=== PATIENT | female | born 1960 | race Caucasian/White ===

== ENCOUNTER 2020-10-31 21:28 | Observation (INO) | payer OTHER ==
[~2020-10-31] VITALS: Ht 152.4 cm; Wt 106.6 kg
[2020-10-31 21:26] VITALS: BP 121/65
[~2020-10-31 21:28] MED LIST: CONTRAST GIVEN. MC PRN
[2020-10-31] MEDS ORDERED: CYCL10TA2 PO (22:26)
[2020-10-31] MEDS ORDERED: VALS1TAB14 PO (22:32)
[2020-10-31] MEDS ORDERED: ARIP10TA9 PO (22:32)
[2020-10-31] MEDS ORDERED: OXYC1TAB20 PO (22:32)
[2020-10-31] MEDS ORDERED: LINA1TAB5 PO (22:32)
[2020-10-31] MEDS ORDERED: INSU3INS2 SQ (22:32)
[2020-10-31] MEDS ORDERED: ALPR0.5T6 PO (22:32)
[2020-10-31] MEDS ORDERED: VENL150C PO (22:32)
[2020-10-31] MEDS ORDERED: GLIM4TAB8 PO (22:32)
[2020-10-31 23:00] VITALS: BP 120/70
[2020-10-31] MEDS ORDERED: oxyCODONE/APAP 10/325 1 TAB TABLET PO PRN (23:15)
[2020-11-01 02:58] VITALS: BP 125/70
[2020-11-01] MEDS: GLIMEPIRIDE 2 MG TABLET. PO SCH ×2 (06:15→08:26)
--- NOTE | 2020-11-01 06:38 | NUR ---
Patient arrived to unit at approx 2130 accompanied by [facility]. Patient reports not pain at this time and is resting comfortably on RA. home meds restarted per Dr. Du. Patient ambulated from gurney to bed with minimal assistance, states that she gets dizzy with ambulation. 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 bed in low locked position, call light in reach, reminded patient to call for assistance before ambulating. Will continue to monitor.
[2020-11-01 07:00] VITALS: BP 116/70
[2020-11-01 08:06] LABS: BASO # 0.1 x10^3/uL (0.0-0.2); BASO % 1 % (0-3); EOS # 0.2 x10^3/uL (0.0-0.7); EOS % 2 % (0-3); HEMATOCRIT 35.4 % (36.0-47.0); LYMPH % 33 % (24-48); MEAN CORPUSCULAR HEMOGLOBIN 28 pg (25-35); MEAN CORPUSCULAR HGB CONC 34 g/dL (31-37); MEAN CORPUSCULAR VOLUME 82 fL (79-100); MONO # 0.5 x10^3/uL (0.0-1.1); MONO % 5 % (0-9); NEUT # 5.2 x10^3/uL (1.8-7.7); NEUT % 59 % (31-73); PLATELET COUNT 316 x10^3/uL (140-400); RED BLOOD COUNT 4.33 x10^6/uL (3.50-5.40); RED CELL DISTRIBUTION WIDTH 15.2 % (11.5-14.5); WHITE BLOOD COUNT 8.9 x10^3/uL (4.0-11.0)
[2020-11-01 08:19] LABS: ALBUMIN 3.3 g/dL (3.4-5.0); ALBUMIN/GLOBULIN RATIO 1.1 (1.0-1.7); CREATININE 0.9 mg/dL (0.6-1.0); GFR 64.1; POTASSIUM 4.2 mmol/L (3.5-5.1); TOTAL BILIRUBIN 0.2 mg/dL (0.2-1.0); TOTAL PROTEIN 6.4 g/dL (6.4-8.2)
[2020-11-01] MEDS: ALPRAZolam 0.5 MG TABLET PO SCH (08:25)
[2020-11-01] MEDS: hydroCHLOROthiazide 25 MG TABLET PO SCH (08:25)
[2020-11-01] MEDS: CYCLOBENZAPRINE 10 MG TABLET. PO SCH (08:25)
[2020-11-01] MEDS: VENLAFAXINE 50 MG TABLET. PO SCH ×3 (08:25→21:13)
[2020-11-01] MEDS: NICOTINE 21MG PATCH. TD PRN (08:25)
[2020-11-01] MEDS: LINAGLIPTIN 5 MG TABLET PO SCH (08:25)
[2020-11-01] MEDS: ARIPiprazole 5 MG TABLET PO SCH (08:26)
[2020-11-01] MEDS: LOSARTAN POTASSIUM 50 MG TABLET. PO SCH (08:26)
[2020-11-01 11:00] VITALS: BP 110/63
--- NOTE | 2020-11-01 11:03 | PDOC ---
[facility] PROGRESS NOTE Date of Service DOS: DATE: 11/01/20 TIME: 10:52 Chief Complaint Chief Complaint Ataxia Dizziness History of Present Illness History of Present Illness 11/01/20 Pt seen and examined. Pt was alert. She states she still feels dizzy. D/W RN. Chart review. Patient arrived to unit at approx 2130 accompanied by [facility]. Patient reports not pain at this time and is resting comfortably on RA. home meds restarted per Dr. Du. Patient ambulated from gurney to bed with minimal assistance, states that she gets dizzy with ambulation. 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 bed in low locked position, call light in reach, reminded patient to call for assistance before ambulating. Will continue to monitor Vitals/I&O Vitals/I&O: Vital Signs Date Time Temp Pulse Resp B/P (MAP) Pulse Ox O2 Delivery O2 Flow Rate FiO2 11/01/20 08:26 71 116/70 11/01/20 08:00 Room Air 11/01/20 07:00 98.2 18 95 98.2 I & O 10/31/20 10/31/20 11/01/20 15:00 23:00 07:00 Intake Total 0 ml Output Total 850 ml Balance -850 ml Labs Labs: Laboratory Tests Test 11/01/20 06:51 11/01/20 07:05 Glucose (Fingerstick) 90 mg/dL (70-99) White Blood Count 8.9 x10^3/uL (4.0-11.0) Red Blood Count 4.33 x10^6/uL (3.50-5.40) Hemoglobin 12.0 g/dL (12.0-15.5) Hematocrit 35.4 % (36.0-47.0) Mean Corpuscular Volume 82 fL (79-100) Mean Corpuscular Hemoglobin 28 pg (25-35) Mean Corpuscular Hemoglobin Concent 34 g/dL (31-37) Red Cell Distribution Width 15.2 % (11.5-14.5) Platelet Count 316 x10^3/uL (140-400) Neutrophils (%) (Auto) 59 % (31-73) Lymphocytes (%) (Auto) 33 % (24-48) Monocytes (%) (Auto) 5 % (0-9) Eosinophils (%) (Auto) 2 % (0-3) Basophils (%) (Auto) 1 % (0-3) Neutrophils # (Auto) 5.2 x10^3/uL (1.8-7.7) Lymphocytes # (Auto) 3.0 x10^3/uL (1.0-4.8) Monocytes # (Auto) 0.5 x10^3/uL (0.0-1.1) Eosinophils # (Auto) 0.2 x10^3/uL (0.0-0.7) Basophils # (Auto) 0.1 x10^3/uL (0.0-0.2) Sodium Level 140 mmol/L (136-145) Potassium Level 4.2 mmol/L (3.5-5.1) Chloride Level 102 mmol/L (98-107) Carbon Dioxide Level 28 mmol/L (21-32) Anion Gap 10 (6-14) Blood Urea Nitrogen 16 mg/dL (7-20) Creatinine 0.9 mg/dL (0.6-1.0) Estimated GFR (Cockcroft-Gault) 64.1 BUN/Creatinine Ratio 18 (6-20) Glucose Level 83 mg/dL (70-99) Calcium Level 9.0 mg/dL (8.5-10.1) Total Bilirubin 0.2 mg/dL (0.2-1.0) Aspartate Amino Transf (AST/SGOT) 22 U/L (15-37) Alanine Aminotransferase (ALT/SGPT) 28 U/L (14-59) Alkaline Phosphatase 93 U/L (46-116) AW-Wjb-D-Type Natriuretic Peptide 163 pg/mL (0-124) Total Protein 6.4 g/dL (6.4-8.2) Albumin 3.3 g/dL (3.4-5.0) Albumin/Globulin Ratio 1.1 (1.0-1.7) Review of Systems Review of Systems: Pt stated she was still experiencing dizziness Assessment and Plan Assessmemt and Plan assessment dizzy plan 11/01/2020 start on Antivert 25mg given 30 tablets discussed with piano case maker D/W RN probable D/C Comment Review of Relevant I have reviewed the following items lon (where applicable) has been applied. Medications: Current Medications Medications (Trade) Dose Ordered Sig/Jamaal Route PRN Reason Start Time Stop Time Status Last Admin Dose Admin Alprazolam (Xanax) 0.5 mg DAILY PO 11/01/20 09:00 11/01/20 08:25 Cyclobenzaprine HCl (Flexeril) 10 mg DAILY PO 11/01/20 09:00 11/01/20 08:25 Aripiprazole (Abilify) 10 mg DAILY PO 11/01/20 09:00 11/01/20 08:26 Glimepiride (Amaryl) 4 mg BIDAC PO 11/01/20 07:30 11/01/20 08:26 Linagliptin (Tradjenta) 5 mg DAILY PO 11/01/20 09:00 11/01/20 08:25 Hydrochlorothiazide (Hydrodiuril) 25 mg DAILY PO 11/01/20 09:00 11/01/20 08:25 Venlafaxine HCl (Effexor) 50 mg TID PO 11/01/20 09:00 11/01/20 08:25 Losartan Potassium (Cozaar) 100 mg DAILY PO 11/01/20 09:00 11/01/20 08:26 Nicotine (Nicoderm Cq 21mg) 1 patch PRN DAILY PRN TD SMOKING CESSATION 11/01/20 02:15 11/01/20 08:25 Justifications for Admission Other Justification GOPI GLASER III DO Nov 01, 2020 11:03
--- NOTE | 2020-11-01 12:13 | SSS ---
ADMIT DATE: 11/01/2020 SHORT STAY SUMMARY CHIEF COMPLAINT: Dizziness. 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 She basically presented with dizziness, weakness, some slightly associated nausea. She initially went to [facility]. She was transferred here. We have observed the patient overnight. This morning, she is doing much better and wants to go home. I am leaving her a prescription for some Antivert. We are going to get an MRI to make sure she did not have a stroke, but clinically she is better. PAST MEDICAL HISTORY: Overweight, muscle spasms, hypertension, chronic pain, arthritis, depression, anxiety, diabetes. ALLERGIES: None. FAMILY HISTORY: Diabetes. SOCIAL HISTORY: She is a evp and chief operating officer. She does not drink, smoke or take drugs. MEDICATIONS: Reviewed, please refer to the MRAD. REVIEW OF SYSTEMS: GENERAL: No history of weight change, weakness or fevers. SKIN: No bruising, hair changes or rashes. EYES: No blurred, double or loss of vision. NOSE AND THROAT: No history of nosebleeds, hoarseness or sore throat. HEART: No history of palpitations, chest pain or shortness of breath on exertion. LUNGS: Denies cough, hemoptysis, wheezing or shortness of breath. GASTROINTESTINAL: Denies changes in appetite, nausea, vomiting, diarrhea or constipation. GENITOURINARY: No history of frequency, urgency, hesitancy or nocturia. NEUROLOGIC: Denies history of numbness, tingling, tremor or weakness. PSYCHIATRIC: No history of panic, anxiety or depression. ENDOCRINE: No history of heat or cold intolerance, polyuria or polydipsia. EXTREMITIES: Denies muscle weakness, joint pain, pain on walking or stiffness. PHYSICAL EXAMINATION: VITALS: Within normal limits and are stable. GENERAL: No apparent distress. Alert and oriented. HEENT: Normal cephalic atraumatic, external auditory canals are patent. EYES: Extraocular muscles are intact, pupils are equally round and reactive to light and accommodation. MUSCULOSKELETAL: Well developed, well nourished, good range of motion. ENDOCRINE: No thyromegaly was palpated. LYMPHATICS: No cervical chain or axillary nodes were noted. HEMATOPOIETIC: No bruising. NECK: Supple, no JVD, no thyromegaly was noted. LUNGS: Clear to auscultation in all lung sanford without rhonchi or wheezing. HEART: RRR, S1, S2 present. Peripheral pulses intact, no obvious murmurs were noted. ABDOMEN: Soft, nontender. Positive bowel sounds no organomegaly, normal bowel sounds. EXTREMITIES: Without any cyanosis, clubbing, or edema. Pedal pulses intact, Homans sign is negative. NEUROLOGIC: Normal speech, normal tone. A and O x 3, moves all extremities, no obvious focal deficits. PSYCHIATRIC: Normal affect, normal mood. Stable. SKIN: No ulcerations or rashes, good skin turgor, no jaundice. VASCULAR: Good capillary refill, neurovascular bundle appears to be intact. ASSESSMENT AND PLAN: Resolving dizziness, suspect inner ear disturbance. To make sure she did not have a stroke, we will check an MRI and consult Neurology. Home meds. Deep venous thrombosis prophylaxis. Full code. PT, OT. If the MRI is negative and if okay with Neurology, we plan to discharge this afternoon. DISPOSITION: Home. ACTIVITY: As tolerated. DIET: Low sodium. MEDICATIONS: Please see the MRAD. I did leave a prescription for Antivert 25 mg q. 8 hours p.r.n., 30 tablets with 1 refill and will continue her home meds, which include insulin, cyclobenzaprine 10 t.i.d., Diovan 160/25 one daily, p.r.n. oxycodone 10 mg q. 6 hours p.r.n., Effexor XR 150 a day, Abilify 10 a day, alprazolam 0.5 q. 8 hours p.r.n., Jentadueto 2.5 b.i.d. and glimepiride 4 a day. Total time 32 minutes. DAVID/ALAYNA/TUSHAR DR: DAVID/oliva TID: [id number]
--- NOTE | 2020-11-01 13:09 | NUR ---
SS following for discharge planning. SS reviewed pt chart and discussed with pt RN. Pt is from home and is currently on room air. PT evaluated and recommended acute rehabilitation. Neurology following. MRI today. Pt currently declining acute rehabilitation. 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 SS will continue to follow for discharge planning.
[2020-11-01 15:00] VITALS: BP 138/78
[2020-11-01 19:34] VITALS: BP 109/63
[2020-11-01] MEDS ORDERED: [UNRECOGNIZED DRUG - OTHER] SQ SCH (21:00)
[2020-11-01 22:12] VITALS: BP 106/62
[2020-11-02 02:36] VITALS: BP 119/62
--- NOTE | 2020-11-02 05:48 | CONS ---
DATE OF CONSULTATION: 11/01/2020 REFERRING PHYSICIAN: Laz Mckeon DO REASON FOR CONSULTATION: Diplopia, dizziness, and possible stroke. HISTORY OF PRESENT ILLNESS: The patient is a pleasant 60-year-old woman who began to experience dizziness on 10/29/2020. She began to have dizziness on 10/27/2020. She went to urgent care the following day. They advised her to go to the hospital if symptoms persisted. She presented to [facility] on 10/31/2020. She has been experiencing dizziness. Initially, she thought it was just related to being out in the heat. She felt lightheaded and dizzy. Then, she felt somewhat of a spinning sensation the following day. She has been having some trouble with diplopia along with this dizziness. She noticed that she had incoordination of her left arm and hand associated with the dizziness. Most of these symptoms have resolved except for the double vision when she looks straight ahead and more to the right. She has never had similar symptoms. She underwent investigation with a CT scan of her head which was not revealing. PAST MEDICAL HISTORY: 1. Morbid obesity. 2. Muscle spasms. 3. Hypertension. 4. Chronic pain. 5. Arthritis of both knees, which have been replaced. 6. Depression. 7. Anxiety. 8. Diabetes. ALLERGIES: No known allergies to drugs. MEDICATIONS PRIOR TO ADMISSION: Alprazolam 0.5 mg daily, Abilify 10 mg, cyclobenzaprine 10 mg, glimepiride 4 mg twice per day, insulin, linagliptin/metformin 2.08/999 mg twice per day, oxycodone/acetaminophen every 6 hours as needed, valsartan/hydrochlorothiazide daily, and venlafaxine ER 150 mg daily. FAMILY HISTORY: Pertinent for diabetes. SOCIAL HISTORY: She lives with someone. She does not drink alcohol, smoke tobacco, or use recreational drugs. 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 She travels in her car a lot, looking in the neighborhood for infraction such as long grass, furniture in lawns, and houses in need of painting, for examples. REVIEW OF SYSTEMS: She does not have any headache. She was recently started on topiramate a month ago for headache and it has been helpful. She has had no trouble with cognitive change. She has been able to hear without difficulty. This has not been associated with hearing loss or tinnitus. She has not had trouble with chewing or swallowing. She has not had a cough or cold. She does not have shortness of breath, chest or abdominal pain. She does not have bone or joint pain. There has been no fever or rash. No gastrointestinal or genitourinary complaint. She does not currently have any psychiatric concern. She does not complain of excessive bruising, bleeding, or swelling. PHYSICAL EXAMINATION: VITAL SIGNS: The blood pressure was 138/78, pulse 88, respirations 18, temperature 98.1 degrees Fahrenheit. Oximetry was 96% on room air. Her weight was 110 kilograms, height 60 inches with a calculated body mass index of 47.4. NEUROLOGIC: She was alert, awake, and cooperative. Speech was fluent and clear. She had a good fund of recent and remote knowledge. Attention and concentration was intact. She appeared well-groomed and well nourished. She was fully oriented. Examination of the cranial nerves revealed visual sanford were full to confrontation. Extraocular movements were intact. The eyes were conjugate. Pursuit movements were smooth and saccadic eye movements were without dysmetria. She did complain of diplopia when looking straight ahead and to the right. I could not see disconjugate gaze to visual inspection. Pupils were 3 mm and reacted. Funduscopic exam did not reveal papilledema, exudate, or hemorrhage. Facial sensation was intact bilaterally. The muscles of mastication and facial expression were powerful symmetrically. Hearing was intact to finger rub. The palate arched symmetrically and the tongue was midline with full motion. Sternocleidomastoid and trapezius were powerful. Muscle bulk and tone was normal. There was no arm drift or abnormal movement. There was no leg drift. Power was full and symmetric in the upper and lower extremities. Reflexes were 2/4 in the upper extremities, 1/4 in the right knee, absent at the left knee, and absent at both ankles. Toes were downgoing bilaterally. Coordination testing with [id number], heel to bailon, fine motor, and rapid alternating movements was well performed. Sensory examination was intact to pain, light touch, proprioception, graphesthesia, cold, thermal and vibration. There was no extinction to double simultaneous stimulation. Gait was normal base and was steady. She was able to heel and toe walk. The Romberg stance was negative. Auscultation of the carotid arteries did not reveal a bruit. HEART: Heart rhythm was regular, without a murmur. EXTREMITIES: Peripheral pulses were symmetric. There was no edema or cyanosis of the extremities. LABORATORY RESULTS: CBC was performed on 11/01/2020 revealing a normal white blood cell count, hemoglobin, and platelet count. The hematocrit was low at 35.4. Chemistries were performed on 11/01/2020. This revealed normal electrolytes, BUN, creatinine, and glucose. The GFR calculated at 64.1. The liver enzymes were not elevated. BNP was elevated to 163. Total protein was normal, but albumin was low at 3.3. IMPRESSION AND RECOMMENDATIONS: The patient is a very pleasant 60-year-old woman who had the onset of dizziness several days ago. I am concerned with the double vision as this would not typically be from a vestibular process. I feel it is very reasonable to proceed with an MRI to evaluate for stroke. I have placed the order. We discussed that if she would ever miss her Effexor that can also give her dizziness, but she has not missed her Effexor. I will be happy to reevaluate after the MRI result is available. I appreciate being involved in her care. KARIE/XENA/CHRIS DR: KARIE/oliva TID: [id number]
[2020-11-02 07:00] VITALS: BP 132/74
[2020-11-02] MEDS: ALPRAZolam 0.5 MG TABLET PO SCH (08:01)
[2020-11-02] MEDS: GLIMEPIRIDE 2 MG TABLET. PO SCH (08:02)
[2020-11-02] MEDS: CYCLOBENZAPRINE 10 MG TABLET. PO SCH (08:02)
[2020-11-02] MEDS: ARIPiprazole 5 MG TABLET PO SCH (08:02)
[2020-11-02] MEDS: VENLAFAXINE 50 MG TABLET. PO SCH ×2 (08:02→14:42)
[2020-11-02] MEDS: LOSARTAN POTASSIUM 50 MG TABLET. PO SCH (08:02)
[2020-11-02] MEDS: hydroCHLOROthiazide 25 MG TABLET PO SCH (08:02)
[2020-11-02] MEDS: LINAGLIPTIN 5 MG TABLET PO SCH (08:02)
[2020-11-02] MEDS: NICOTINE 21MG PATCH. TD PRN (08:03)
--- NOTE | 2020-11-02 09:13 | PDOC ---
[employer] PROGRESS NOTE Date of Service DOS: DATE: 11/02/20 TIME: 09:01 Chief Complaint Chief Complaint Ataxia Dizziness History of Present Illness History of Present Illness Patient is a 60 year old female who arrived to unit at approx 2130 accompanied by [facility]. Patient reports not pain at this time and is resting comfortably on RA. home meds restarted per Dr. Du. Patient ambulated from gurney to bed with minimal assistance, states that she gets dizzy with ambulation. 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 bed in low locked position, call light in reach, reminded patient to call for assistance before ambulating. Will continue to monitor 11/02/2020 Pt seen and examined in bed. D/W RN Chart reviewed Discussed probable discharge plan once MRI results are reviewed 11/01/20 Pt seen and examined. Pt was alert. She states she still feels dizzy. D/W RN. Chart review. Vitals/I&O Vitals/I&O: Vital Signs Date Time Temp Pulse Resp B/P (MAP) Pulse Ox O2 Delivery O2 Flow Rate FiO2 11/02/20 08:02 66 119/62 11/02/20 07:00 98.2 18 96 Room Air 98.2 I & O 11/01/20 11/01/20 11/02/20 15:00 23:00 07:00 Intake Total 360 ml 280 ml 200 ml Balance 360 ml 280 ml 200 ml Physical Exam General: Alert, Oriented X3, Cooperative Heart: Regular rate, Normal S1, Normal S2 Lungs: Clear Abdomen: Normal bowel sounds Skin: No rashes Labs Labs: Laboratory Tests Test 11/01/20 19:17 11/02/20 07:17 Glucose (Fingerstick) 207 mg/dL (70-99) 174 mg/dL (70-99) Review of Systems Review of Systems: Denies fever or pain bowel and bladder continent Denies weakness, numbness or tingling in extremities Assessment and Plan Assessmemt and Plan Assessment dizziness ataxia Plan Continue Antivert 25mg discussed with bilingual case manager awaiting MRI appreciated subspecialty input D/W RN probable D/C pending mri results Comment Review of Relevant I have reviewed the following items lon (where applicable) has been applied. Justifications for Admission Other Justification GOPI GLASER III DO Nov 02, 2020 09:13
[2020-11-02 11:28] VITALS: BP 114/62
--- NOTE | 2020-11-02 11:36 | NUR ---
SS following up with discharge planning. SS reviewed pt chart and discussed with pt RN. Pt is currently on room air. PT evaluated and recommended acute rehabilitation. Pt currently declining acute rehabilitation. 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 Discharge order on the chart for home with self care if MRI is negative. SS will continue to follow for discharge planning.
--- NOTE | 2020-11-02 14:13 | RAD ---
MRI brain without contrast HISTORY: evaluate for stroke, diplopia, stroke. COMPARISON: None available at time of exam. FINDINGS: No acute ischemic infarction. No pathologic diffusion weighted signal abnormality of the br ain. No brain atrophy evident. No brain edema. There are a 4 bilateral frontal lobe white matter T2-w eighted hyperintense lesions largest of which at the anterior right frontal lobe measures 5 mm on axi al FLAIR image 15. No cavitary lesion of the white matter evident. No intracranial hemorrhage, mass, hydrocephalus, extra-axial fluid collections or infarction. Orbits and mastoids are unremarkable. IMPRESSION: No acute abnormality. There are a few small bilateral frontal white matter T2-weighted hy perintense lesions, statistically most likely represent sequela of chronic microvascular ischemic inj ury of the white matter, sequela of chronic migraine headaches, or chronic autoimmune demyelinating l esions. Electronically signed by: Gómez Abernathy MD (11/02/2020 2:11 PM) [facility]
--- NOTE | 2020-11-02 14:48 | PDOC ---
PROGRESS NOTES Date of Service DATE: 11/02/20 TIME: 14:44 Assessment MRI of the brain was performed today. This did not reveal an acute abnormality. I was concerned there may have been a stroke in the brainstem contributing to the dizziness and diplopia but nothing was seen in the area. 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 The symptoms are likely due to vestibulopathy. This should improve gradually over time. Plan She may participate with outpatient physical therapy if she feels her symptoms are bothersome. She may be dismissed from a neurologic perspective when medically stable. She may feel free to follow-up with neurology if her symptoms persist or she has new neurologic symptoms. Subjective I am feeling a little better each day. I am less dizzy today but the symptoms have not resolved. Objective Vital Signs Date Time Temp Pulse Resp B/P (MAP) Pulse Ox O2 Delivery O2 Flow Rate FiO2 11/02/20 11:28 98.2 81 18 114/62 (79) 95 Room Air 98.2 Intake and Output 11/02/20 07:00 Intake Total 840 ml Balance 840 ml Intake Oral 840 ml # Voids 4 # Bowel Movements 1 PHYSICAL EXAM She was alert, awake and cooperative. Speech was fluent and clear. She had a good fund of knowledge. Attention and concentration was intact. She appeared well groomed and well nourished. She was oriented. The eyes were conjugate and face symmetric. Movements were symmetric and well coordinated. Sitting balance was normal. Review of Relevant I have reviewed the following items lon (where applicable) has been applied. Labs Laboratory Tests Test 11/01/20 06:51 11/01/20 07:05 11/01/20 19:17 11/02/20 07:17 Glucose (Fingerstick) 90 mg/dL (70-99) 207 mg/dL (70-99) 174 mg/dL (70-99) White Blood Count 8.9 x10^3/uL (4.0-11.0) Red Blood Count 4.33 x10^6/uL (3.50-5.40) Hemoglobin 12.0 g/dL (12.0-15.5) Hematocrit 35.4 % (36.0-47.0) Mean Corpuscular Volume 82 fL (79-100) Mean Corpuscular Hemoglobin 28 pg (25-35) Mean Corpuscular Hemoglobin Concent 34 g/dL (31-37) Red Cell Distribution Width 15.2 % (11.5-14.5) Platelet Count 316 x10^3/uL (140-400) Neutrophils (%) (Auto) 59 % (31-73) Lymphocytes (%) (Auto) 33 % (24-48) Monocytes (%) (Auto) 5 % (0-9) Eosinophils (%) (Auto) 2 % (0-3) Basophils (%) (Auto) 1 % (0-3) Neutrophils # (Auto) 5.2 x10^3/uL (1.8-7.7) Lymphocytes # (Auto) 3.0 x10^3/uL (1.0-4.8) Monocytes # (Auto) 0.5 x10^3/uL (0.0-1.1) Eosinophils # (Auto) 0.2 x10^3/uL (0.0-0.7) Basophils # (Auto) 0.1 x10^3/uL (0.0-0.2) Sodium Level 140 mmol/L (136-145) Potassium Level 4.2 mmol/L (3.5-5.1) Chloride Level 102 mmol/L (98-107) Carbon Dioxide Level 28 mmol/L (21-32) Anion Gap 10 (6-14) Blood Urea Nitrogen 16 mg/dL (7-20) Creatinine 0.9 mg/dL (0.6-1.0) Estimated GFR (Cockcroft-Gault) 64.1 BUN/Creatinine Ratio 18 (6-20) Glucose Level 83 mg/dL (70-99) Calcium Level 9.0 mg/dL (8.5-10.1) Total Bilirubin 0.2 mg/dL (0.2-1.0) Aspartate Amino Transf (AST/SGOT) 22 U/L (15-37) Alanine Aminotransferase (ALT/SGPT) 28 U/L (14-59) Alkaline Phosphatase 93 U/L (46-116) XY-Pol-E-Type Natriuretic Peptide 163 pg/mL (0-124) Total Protein 6.4 g/dL (6.4-8.2) Albumin 3.3 g/dL (3.4-5.0) Albumin/Globulin Ratio 1.1 (1.0-1.7) Laboratory Tests Test 11/01/20 19:17 11/02/20 07:17 Glucose (Fingerstick) 207 mg/dL (70-99) 174 mg/dL (70-99) Medications Current Medications Alprazolam (Xanax) 0.5 mg DAILY PO Last administered on 11/02/20at 08:01; Start 11/01/20 at 09:00 Cyclobenzaprine HCl (Flexeril) 10 mg DAILY PO Last administered on 11/02/20at 08:02; Start 11/01/20 at 09:00 Oxycodone/ Acetaminophen (Percocet 10/325) 1 tab PRN Q6HRS PRN PO PAIN; Start 10/31/20 at 23:15 Aripiprazole (Abilify) 10 mg DAILY PO Last administered on 11/02/20at 08:02; Start 11/01/20 at 09:00 Glimepiride (Amaryl) 4 mg BIDAC PO Last administered on 11/02/20at 08:02; Start 11/01/20 at 07:30 Non-Formulary Medication (Insulin Glargine/ Lixisenatide (Soliqua 100 Unit-33 Mcg/ml Pen)) 60 ml HS SQ ; Start 11/01/20 at 21:00; Stop 11/02/20 at 08:10; Status DC Linagliptin (Tradjenta) 5 mg DAILY PO Last administered on 11/02/20at 08:02; Start 11/01/20 at 09:00 Hydrochlorothiazide (Hydrodiuril) 25 mg DAILY PO Last administered on 11/02/20at 08:02; Start 11/01/20 at 09:00 Venlafaxine HCl (Effexor) 50 mg TID PO Last administered on 11/02/20at 14:42; Start 11/01/20 at 09:00 Losartan Potassium (Cozaar) 100 mg DAILY PO Last administered on 11/02/20at 08:02; Start 11/01/20 at 09:00 Info (CONTRAST GIVEN -- Rx MONITORING) 1 each PRN DAILY PRN MC SEE COMMENTS; Start 10/31/20 at 11:30; Stop 11/02/20 at 11:29; Status DC Metformin HCl (Glucophage) 1,000 mg BIDWMEALS PO ; Start 11/02/20 at 17:00 Nicotine (Nicoderm Cq 21mg) 1 patch PRN DAILY PRN TD SMOKING CESSATION Last administered on 11/02/20at 08:03; Start 11/01/20 at 02:15 Insulin Glargine (Lantus Syringe) 60 unit QHS SQ ; Start 11/02/20 at 21:00 Active Scripts Active Reported Soliqua 100 Unit-33 Mcg/ml Pen (Insulin Glargine/Lixisenatide) 3 Ml Insuln.pen 60 Ml SQ HS Abilify (Aripiprazole) 10 Mg Tablet 10 Mg PO DAILY Alprazolam 0.5 Mg Tablet 1 Tab PO DAILY Glimepiride 4 Mg Tablet 1 Tab PO BID Oxycodone-Acetaminophen 10-325 (Oxycodone Hcl/Acetaminophen) 1 Each Tablet 1 Each PO PRN Q6HRS PRN Jentadueto 2.5 Mg-1000 Mg Tab (Linagliptin/Metformin Hcl) 1 Each Tablet 1 Each PO BID Diovan Hct 160-25 Mg Tablet (Valsartan/Hydrochlorothiazide) 1 Each Tablet 1 Tab PO DAILY Effexor Xr (Venlafaxine Hcl) 150 Mg Cap.er.24h 150 Mg PO DAILY Cyclobenzaprine Hcl 10 Mg Tablet 10 Mg PO DAILY Vitals/I & O Vital Sign - Last 24 Hours 11/01/20 11/01/20 11/01/20 11/01/20 15:00 19:34 19:47 22:12 Temp 98.1 97.7 98.1 98.1 97.7 98.1 Pulse 88 76 70 Resp 18 18 16 B/P (MAP) 138/78 (98) 109/63 (78) 106/62 (77) Pulse Ox 96 98 95 O2 Delivery Room Air Room Air Room Air Room Air 11/02/20 11/02/20 11/02/20 11/02/20 02:36 07:00 08:00 08:02 Temp 98.0 98.2 98.0 98.2 Pulse 66 78 66 Resp 18 18 B/P (MAP) 119/62 (81) 132/74 (93) 119/62 Pulse Ox 97 96 O2 Delivery Room Air Room Air Room Air 11/02/20 11:28 Temp 98.2 98.2 Pulse 81 Resp 18 B/P (MAP) 114/62 (79) Pulse Ox 95 O2 Delivery Room Air Intake and Output 11/01/20 11/01/20 11/02/20 15:00 23:00 07:00 Intake Total 360 ml 280 ml 200 ml Balance 360 ml 280 ml 200 ml Justicifation of Admission Dx: Justifications for Admission: Justification of Admission Dx: Yes CHLOE WALDROP MD Nov 02, 2020 14:48
[2020-11-02] MEDS ORDERED: metFORMIN 500 MG TABLET PO SCH (17:00)
[2020-11-02] MEDS ORDERED: INSULIN GLARGINE SYRINGE. SQ SCH (21:00)
== END 2020-11-02 15:20 | disposition home or self-care (01) ==
LOC: 2 SOUTH 21:28 → INTOOBSV 21:28
PROVIDERS: ADMIT Internal Medicine; ATTEND Internal Medicine
DX: R42 Dizziness and giddiness (principal); E11.51 Type 2 diabetes mellitus with diabetic peripheral angiopathy without gangrene; I10 Essential (primary) hypertension; E66.01 Morbid (severe) obesity due to excess calories; H53.2 Diplopia; F03.90 Unspecified dementia, unspecified severity, without behavioral disturbance, psychotic disturbance, mood disturbance, and anxiety; M17.0 Bilateral primary osteoarthritis of knee; F32.9 Major depressive disorder, single episode, unspecified; F41.9 Anxiety disorder, unspecified; G89.29 Other chronic pain; M79.89 Other specified soft tissue disorders; Z79.899 Other long term (current) drug therapy
CPT/HCPCS: 36415; 70551; 80053; 82962; 83880; 85025; 97116; 97162; 97530; G0378; G0379